=== PATIENT | female | born 1955 | race Caucasian/White ===

== ENCOUNTER 2019-02-02 08:39 | Inpatient (IN) | payer MEDICARE, MEDICAID ==
[2019-02-02] MEDS ORDERED: LORazepam 2 MG/ML SDV IV PRN (08:45)
[2019-02-02] MEDS ORDERED: Lactated Ringers 1,000 ML IV SCH (08:45)
[2019-02-02] MEDS: Sodium Chloride 0.9% 10 ML Syringe FLUSH PRN ×4 (10:00→22:11)
[2019-02-02] MEDS: Formoterol/Mometasone 200-5 MCG 8.8 GM Inhaler IH SCH ×2 (10:06→20:47)
[2019-02-02] MEDS: methylPREDNISolone Sodium Succinate 125 MG/2 ML SDV IVPUSH SCH ×3 (10:10→22:11)
[2019-02-02] MEDS: Albuterol/Ipratropium 3.0-0.5 MG/3 ML Neb Soln INH PRN ×2 (10:13→17:20)
[2019-02-02] MEDS ORDERED: hydrOXYzine HCl 25 MG Tab PO PRN (10:50)
[2019-02-02] MEDS ORDERED: Albuterol/Ipratropium 3.0-0.5 MG/3 ML Neb Soln INH PRN (10:50)
[2019-02-02] MEDS ORDERED: Zolpidem 5 MG Tab PO PRN (10:50)
[2019-02-02] MEDS ORDERED: ALPRAZolam 0.25 MG Tab PO PRN (10:50)
[2019-02-02] MEDS ORDERED: Ibuprofen 800 MG Tab PO PRN (11:12)
--- NOTE | 2019-02-02 12:43 | CR ---
INDICATION: Dyspnea. CHEST: PA and lateral views of the chest were obtained 02/02/19 and compared with 03/07/12 and 07/20/10. The heart remains normal in size and shape. The aorta is tortuous with minimal calcification in the arch. The diaphragm leaves are flattened to a greater extent, suggesting progressive COPD and/or exacerbation of COPD. A definite active infiltrate or effusion was not identified. Bony structures appear to be fairly intact. Evidence of exogenous obesity is noted. IMPRESSION: 1. No definite acute process. 2. COPD is suggested. 3. ASD aorta. 4. Exogenous obesity. 5. Resolution of probable pneumonia at the left lung base. MTDD
--- NOTE | 2019-02-02 13:24 | HP ---
ADMISSION DATE: 02/02/2019 CHIEF COMPLAINT: Asthma. HISTORY OF PRESENT ILLNESS: Ms. Da Silva is a 63-year-old woman from [place], [place], with a long history of asthma. She has had hospitalizations in the past for asthma, but none in the last couple of years. She also gives a remote history of pneumonia, but again nothing in the last couple of years. The patient states her asthma has been flared up now for the past 2 weeks. This followed an upper respiratory infection. She has been using her asthma meds regularly and because of the exacerbation yesterday, took 60 mg of oral prednisone that she has had on hand. She still felt very bad today, so she went to the clinic and saw Dr. Gordon, who recommended hospital admission. The patient denies acute fever, current infection. She is coughing, productive of yellowish phlegm. She is not having chest pain, but does note the particular wheezing and shortness of breath. PAST MEDICAL HISTORY: Long-standing asthma. She has not been a smoker for over 20 years. She does have hyperlipidemia. She has a history of GERD, cured by Otilia; hiatal hernia surgery in 2017. She had a simultaneous cholecystectomy. She has had vaginal hysterectomy for benign reasons. She is 4, para 4 with normal deliveries. She has never had transfusions, jaundice, or hepatitis. MEDICATIONS: 1. Ambien 5 mg at bedtime p.r.n. sleep. She takes this when she has to be on prednisone. 2. Rosuvastatin 10 mg daily. 3. Multiple vitamin 1 daily. 4. Singulair 10 mg daily. 5. Ibuprofen p.r.n. 6. Hydroxyzine 25 mg q.i.d. p.r.n. itching. 7. Pulmicort nebulizer 0.5 mg b.i.d. 8. Alprazolam 0.25 mg t.i.d. p.r.n. 9. DuoNebs q.4h p.r.n. 10.Ventolin HFA 2 puffs q.i.d. p.r.n. 11.Brovana nebulizer 15 mcg b.i.d. ALLERGIES: Codeine causes hives, roflumilast. HABITS: Nonsmoker, occasional alcohol, 1-2 servings of Coke per day. FAMILY AND SOCIAL HISTORY: The patient's father at age 75 of lung cancer. Her mother at age 81 of bladder cancer. Both of them were smokers. She has 2 brothers, both affected by [employer], 1 with carotid disease and 1 with esophageal rupture post-dilation. She has 2 sisters who are healthy. The patient has been for over 20 years. She lives in [place]. She has 4 children, all within 150 miles and several grandchildren. She was watching her grandchildren today before she came into the clinic. REVIEW OF SYSTEMS: GENERAL: No seizure, syncope, or recent significant weight change. SKIN: Negative for rash. HEENT: No recent changes in hearing or vision. No current sore throat. She does have a cough and dyspnea as mentioned. No chest pain or palpitations. No abdominal pain, nausea, or diarrhea. She gets no heartburn since her surgery. No vaginal bleeding. No joint inflammation, swelling, or skin rash. PHYSICAL EXAMINATION: GENERAL: She is alert and comfortable, but she has audible wheezing and mild tachypnea. She is able to say several word sentences, however. VITAL SIGNS: Blood pressure 128/77, pulse 80 and regular, respirations 18, O2 saturation 95% on 2 L nasal cannula, temperature 98.4, weight 213 pounds 6 ounces. SKIN: Anicteric, warm, and dry without rash. HEENT: Shows clear TMs. Pupils are equal and reactive. Oropharynx is clear. NECK: Supple. Thyroid normal. LUNGS: Have expiratory wheezes and loose cough with rhonchi bilaterally, but no focal consolidation. HEART: Regular without murmur or gallop. ABDOMEN: Obese, soft, and nontender. No masses. No organomegaly. EXTREMITIES: Warm, well perfused. Excellent pulses. No edema. NEUROLOGIC: Normal. LABORATORY DATA: White count 7300, hemoglobin 14.4. Electrolytes are normal. Creatinine 0.8. Troponin less than 0.17. Chest x-ray is pending. Electrolytes are normal. ASSESSMENT: 1. Status asthmaticus with underlying asthma, precipitated by recent viral infection. 2. Hyperlipidemia. 3. Overweight. 4. Mild liver enzyme elevation, likely steatosis, likely fatty liver. PLAN: She is admitted to acute care. We will do EKG, chest x-ray, telemetry. Collect a sputum sample. Treat her with IV steroid and nebulizer treatments, and hopefully she will be able to be discharged within 48 to 72 hours. /[id number] DAVID/POLA
[2019-02-02] MEDS ORDERED: Budesonide 0.5 MG/2 ML Neb Susp INH SCH (21:00)
[2019-02-02] MEDS ORDERED: Montelukast 10 MG Tab PO SCH (21:00)
[2019-02-02] MEDS ORDERED: Rosuvastatin 10 MG Tab PO SCH (21:00)
[2019-02-03] MEDS: Albuterol/Ipratropium 3.0-0.5 MG/3 ML Neb Soln INH PRN (04:59)
[2019-02-03] MEDS: Formoterol/Mometasone 200-5 MCG 8.8 GM Inhaler IH SCH (06:38)
[2019-02-03] MEDS: Sodium Chloride 0.9% 10 ML Syringe FLUSH PRN (07:22)
[2019-02-03] MEDS ORDERED: Multivitamin Tab PO SCH (09:00)
--- NOTE | 2019-02-04 04:38 | DISCH ---
DISCHARGE DATE: 02/03/2019 DISCHARGE DIAGNOSES: 1. Acute severe status asthmaticus. 2. Respiratory difficulty. SECONDARY DIAGNOSES: 1. Underlying chronic obstructive pulmonary disease. 2. Hyperlipidemia. 3. Fatty liver disease. HISTORY OF PRESENT ILLNESS: Ilana Da Silva is a 63-year-old, single female, [place], [place] resident, who was admitted from the clinic under the care of Dr. Ayala. She presented with a progressive history of complicated dyspnea over the last couple weeks duration. Asthma meds were taken regularly, had been given a second 40 mg of Kenalog about 3 weeks ago, took some oral meds at home. Seen at the clinic and admission to hospital is indicated. MEDICATIONS ON ADMISSION: 1. Ambient. 2. Crestor. 3. Multivitamin. 4. Singular. 5. Ibuprofen. 6. Hydroxyzine. 7. Pulmicort nebulizer. 8. DuoNeb. 9. Alprazolam. 10.Ventolin. Please see Dr. Ayala's admitting exam. Placed on hospital IV fluids, IV steroids, aggressive RT treatments. Chest x- ray revealed no pneumonia or bacterial infection and antibiotics not indicated. Response was satisfactory. Was up ambulating, weaned from O2 and comfortable at the time of discharge. PHYSICAL EXAMINATION: VITAL SIGNS: 97.159 kg, 36.6, 75, 90% on room air, respirations 18, and blood pressure 126/76. GENERAL: Appears comfortable. Speech was not gated. HEENT: Mouth and oropharynx clear, good. NECK: Benign. Thyroid small. CHEST: Some diffuse wheezing, but good air exchange. HEART: No ectopy or murmur at 75. ASSESSMENT: 1. Acute asthmatic event. 2. Status asthmaticus. PLAN: The patient is comfortable, we will discharge home on home inhalation therapy. No antibiotics, a burst of steroids 48-17-09-20-10 for the intervals. Complementary care and well being. Addendum: A 30-minute visit; discharge exam, planning, and upcoming visits. /[id number] SHERRY/POLA
== END 2019-02-03 10:42 | disposition home or self-care (01) | DRG 203 ==
LOC: FB.MS 08:39
PROVIDERS: ADMIT Family Medicine; ATTEND Family Medicine
DX: J45.52 Severe persistent asthma with status asthmaticus (principal); J44.9 Chronic obstructive pulmonary disease, unspecified; E78.5 Hyperlipidemia, unspecified; K76.0 Fatty (change of) liver, not elsewhere classified; Z90.49 Acquired absence of other specified parts of digestive tract; Z90.710 Acquired absence of both cervix and uterus; Z88.5 Allergy status to narcotic agent; Z88.8 Allergy status to other drugs, medicaments and biological substances; E66.3 Overweight; Z68.36 Body mass index [BMI] 36.0-36.9, adult
CPT/HCPCS: 36415; 71046; 80053; 81001; 83735; 84484; 85025; 87070; 87077; 87205; 93005; 94150; 94640; A9270-GY; J2930; J7620-GY

== ENCOUNTER 2024-06-20 08:41 | Day surgery (SDC) | payer MEDICARE, MEDICAID ==
[2024-06-20] MEDS ORDERED: fentaNYL 100 MCG/2 ML SDV IV ONE (08:42)
[2024-06-20] MEDS ORDERED: Midazolam 1 MG/ML 2 ML SDV IV ONE (08:42)
[2024-06-20] MEDS ORDERED: Sodium Chloride 0.9% 10 ML Syringe FLUSH PRN (09:00)
[2024-06-20] MEDS: Lactated Ringers 1,000 ML IV PRN (09:54)
[2024-06-20] MEDS: acetaZOLAMIDE 500 MG Cap.ER PO ONE (11:28)
== END 2024-06-20 11:45 | disposition home or self-care (01) ==
LOC: FB.SDS 08:41
PROVIDERS: ATTEND Ophthalmology
DX: H26.9 Unspecified cataract (principal); E66.9 Obesity, unspecified; E78.5 Hyperlipidemia, unspecified; J44.89 Other specified chronic obstructive pulmonary disease; Z87.891 Personal history of nicotine dependence; Z68.34 Body mass index [BMI] 34.0-34.9, adult; Z79.899 Other long term (current) drug therapy; Z88.5 Allergy status to narcotic agent
CPT/HCPCS: 66984; A9270; J2250; J3010; J7120; V2632; 00142

== ENCOUNTER 2024-07-04 09:09 | Day surgery (SDC) | payer MEDICARE, MEDICAID ==
[2024-07-04] MEDS ORDERED: fentaNYL 100 MCG/2 ML SDV IV ONE (09:10)
[2024-07-04] MEDS ORDERED: Midazolam 1 MG/ML 2 ML SDV IV ONE (09:10)
[2024-07-04] MEDS ORDERED: Sodium Chloride 0.9% 10 ML Syringe FLUSH PRN (09:15)
[2024-07-04] MEDS: Lactated Ringers 1,000 ML IV PRN (10:22)
[2024-07-04] MEDS: acetaZOLAMIDE 500 MG Cap.ER PO ONE (11:38)
== END 2024-07-04 11:53 | disposition home or self-care (01) ==
LOC: FB.SDS 09:09
PROVIDERS: ATTEND Ophthalmology
DX: H26.9 Unspecified cataract (principal); K76.89 Other specified diseases of liver; G47.33 Obstructive sleep apnea (adult) (pediatric); E66.9 Obesity, unspecified; E78.2 Mixed hyperlipidemia; J44.89 Other specified chronic obstructive pulmonary disease; Z79.899 Other long term (current) drug therapy; Z87.891 Personal history of nicotine dependence; Z68.34 Body mass index [BMI] 34.0-34.9, adult
CPT/HCPCS: 66984; A9270; J2250; J3010; J7120; V2632; 00142